=== PATIENT | female | born 2000 | race African-American/Black ===

== ENCOUNTER 2023-11-21 12:38 | Emergency (ER) | payer OTHER ==
[~2023-11-21] VITALS: Ht 160 cm; Wt 57.3 kg
[2023-11-21] MEDS ORDERED: ONDANSETRON 4MG 2ML VIAL IV ONE (13:00)
[2023-11-21] MEDS ORDERED: MORPHINE 4 MG/ML 1ML VIAL IV ONE (13:00)
[2023-11-21] MEDS ORDERED: NS 1,000 ML IV ONE (13:00)
[2023-11-21 13:29] LABS: BASO % 0.3 % (0.0-1.0); EOS % 0.2 % (0.0-3.0); HEMATOCRIT 38.2 % (36.0-47.0); HEMOGLOBIN 12.5 g/dl (12.0-15.5); LYMPH # 0.9 10^3/uL (1.5-5.0); LYMPH % 9.6 % (24.0-44.0); MEAN CORPUSCULAR HEMOGLOBIN 28.3 pg (27.0-33.0); MEAN CORPUSCULAR HGB CONC 32.7 g/dl (32.0-36.5); MEAN CORPUSCULAR VOLUME 86.4 fl (80.0-96.0); MONO # 0.5 10^3/uL (0.0-0.8); MONO % 5.1 % (2.0-8.0); NEUTROPHILS # 7.9 10^3/uL (1.5-8.5); NEUTROPHILS % 84.4 % (36.0-66.0); PLATELET COUNT, AUTOMATED 260 10^3/uL (150-450); RED BLOOD COUNT 4.42 10^6/uL (4.00-5.40); WHITE BLOOD COUNT 9.4 10^3/uL (4.0-10.0)
[2023-11-21 13:50] LABS: LIPASE 37 U/L (12-53)
[2023-11-21 13:53] LABS: ALBUMIN 4.2 G/DL (3.2-5.2); ALKALINE PHOSPHATASE 58 U/L (46-116); ALT/SGPT 11 U/L (7.0-40); AST/SGOT 13 U/L (<34); BILIRUBIN,DIRECT 0.2 MG/DL (<0.4); BILIRUBIN,TOTAL 0.5 MG/DL (0.3-1.2); BLOOD UREA NITROGEN 14 MG/DL (9-23); CALCIUM LEVEL 9.4 MG/DL (8.5-10.1); CARBON DIOXIDE LEVEL 25 MMOL/L (20-31); CHLORIDE LEVEL 107 MMOL/L (98-107); CREATININE FOR GFR 0.78 MG/DL (0.55-1.30); GLOMERULAR FILTRATION RATE > 60.0 (>60); GLUCOSE, FASTING 93 MG/DL (60-100); POTASSIUM SERUM 3.7 MMOL/L (3.5-5.1); SODIUM LEVEL 139 MMOL/L (136-145); TOTAL PROTEIN 7.8 G/DL (5.7-8.2)
[2023-11-21] MEDS ORDERED: ISOVUE-370 76% 100ML VIAL As Ordered ONE (13:57)
[2023-11-21 14:58] LABS: CHLAMYDIA DNA AMPLIFICATION NEGATIVE (NEGATIVE); GC DNA AMPLIFICATION NEGATIVE (NEGATIVE)
[2023-11-21 17:00] VITALS: TEMP 98.2
[2023-11-21 17:30] VITALS: BP 95/52; O2SAT 99
[2023-11-21] MEDS ORDERED: CIPROFLOXACIN 500MG TABLET PO ONE (17:30)
[2023-11-21] MEDS ORDERED: metroNIDAZOLE (FLAGYL) 500MG TABLET PO ONE (17:30)
[2023-11-21] MEDS ORDERED: CIPR-249 PO (17:38)
[2023-11-21] MEDS ORDERED: METR-265 PO (17:38)
== END 2023-11-21 17:51 | disposition home or self-care (01) ==
LOC: EDBD 12:38 → M ED 12:38
DX: N76.0 Acute vaginitis (principal); K51.019 Ulcerative (chronic) pancolitis with unspecified complications; F32.A Depression, unspecified; Z79.2 Long term (current) use of antibiotics; Z79.899 Other long term (current) drug therapy
CPT/HCPCS: 74177; 76856; 80048; 80076; 81001; 83690; 84702; 85025; 87210; 87661; 87810; 87850; 93041; 93976; 96361; 96374; 96375; 99285; J2405; Q9967

== ENCOUNTER 2024-06-28 12:29 | Emergency (ER) | payer OTHER ==
[~2024-06-28] VITALS: Ht 160 cm; Wt 55.8 kg
[~2024-06-28 12:29] MED LIST: CIPR-249 PO; METR-265 PO
[2024-06-28] MEDS ORDERED: UNIS25TA5 PO (12:44)
[2024-06-28] MEDS ORDERED: SERT25TA85 PO (12:44)
[2024-06-28 13:27] LABS: BASO % 0.6 % (0.0-1.0); EOS % 0.6 % (0.0-3.0); HEMATOCRIT 33.7 % (36.0-47.0); HEMOGLOBIN 11.5 g/dl (12.0-15.5); LYMPH # 1.4 10^3/uL (1.5-5.0); LYMPH % 27.2 % (24.0-44.0); MEAN CORPUSCULAR HEMOGLOBIN 29.7 pg (27.0-33.0); MEAN CORPUSCULAR HGB CONC 34.1 g/dl (32.0-36.5); MEAN CORPUSCULAR VOLUME 87.1 fl (80.0-96.0); MONO # 0.3 10^3/uL (0.0-0.8); NEUTROPHILS # 3.2 10^3/uL (1.5-8.5); NEUTROPHILS % 65.4 % (36.0-66.0); PLATELET COUNT, AUTOMATED 216 10^3/uL (150-450); RED BLOOD COUNT 3.87 10^6/uL (4.00-5.40)
[2024-06-28 13:48] LABS: LIPASE 53 U/L (12-53)
[2024-06-28 13:49] LABS: HCG, SERUM QUALITATIVE POSITIVE (NEGATIVE)
[2024-06-28 13:50] LABS: ALKALINE PHOSPHATASE 50 U/L (46-116); ALT/SGPT 39 U/L (7.0-40); AST/SGOT 27 U/L (<34); BILIRUBIN,DIRECT 0.3 MG/DL (<0.4); BILIRUBIN,TOTAL 0.7 MG/DL (0.3-1.2); BLOOD UREA NITROGEN 12 MG/DL (9-23); CALCIUM LEVEL 9.2 MG/DL (8.5-10.1); CARBON DIOXIDE LEVEL 23 MMOL/L (20-31); CHLORIDE LEVEL 105 MMOL/L (98-107); CREATININE FOR GFR 0.65 MG/DL (0.55-1.30); GLOMERULAR FILTRATION RATE > 60.0 (>60); GLUCOSE, FASTING 84 MG/DL (60-100); POTASSIUM SERUM 3.5 MMOL/L (3.5-5.1); SODIUM LEVEL 133 MMOL/L (136-145); TOTAL PROTEIN 7.6 G/DL (5.7-8.2)
[2024-06-28] MEDS: NS 1,000 ML IV ONE (17:24)
[2024-06-28] MEDS: ONDANSETRON 4MG 2ML VIAL IV ONE (17:24)
[2024-06-28 18:00] LABS: Trichomonas vaginalis (AMP) NOT DETECTED (NEGATIVE)
[2024-06-28 18:23] LABS: GC DNA AMPLIFICATION NEGATIVE (NEGATIVE)
[2024-06-28] MEDS ORDERED: ONDA-282 PO (18:41)
[2024-06-28 18:53] VITALS: BP 109/57; TEMP 97.7; O2SAT 100
== END 2024-06-28 18:56 | disposition home or self-care (01) ==
LOC: M ED 12:29
DX: O21.1 Hyperemesis gravidarum with metabolic disturbance (principal); F32.A Depression, unspecified; Z3A.01 Less than 8 weeks gestation of pregnancy; Z79.899 Other long term (current) drug therapy; Z79.83 Long term (current) use of bisphosphonates
CPT/HCPCS: 76801; 80048; 80076; 81001; 83690; 84702; 84703; 85025; 86850; 86900; 86901; 87661; 87810; 87850; 96361; 96374; 99284; J2405

== ENCOUNTER 2024-11-22 13:32 | Outpatient (CLI) | payer OTHER ==
[~2024-11-22] VITALS: Ht 162.6 cm; Wt 69.0 kg
[~2024-11-22 13:32] MED LIST changes: +ALBUTEROL SULFATE 2.5MG/0.5ML INH NEB SOLN INH PRN; +EPINEPHrine INJ 1 MG/ML 1ML AMP IM PRN; +ONDA-282 PO; +SERT25TA85 PO; +UNIS25TA5 PO; +diphenhydrAMINE 50MG/ML VIAL IV PRN; +methylPREDNISolone 125MG 2ML VIAL IV PRN
[2024-11-22 13:53] VITALS: BP 118/73; O2SAT 100
[2024-11-22] MEDS: IRON SUCROSE 300 MG in NS 250 ML IV ONE (14:34)
[2024-11-22] MEDS ORDERED: MULTTAB20 PO (14:37)
[2024-11-22 16:11] VITALS: BP 115/63; O2SAT 99
[2024-11-22 16:30] VITALS: BP 113/62; O2SAT 99
== END 2024-11-22 16:30 | disposition home or self-care (01) ==
LOC: M INFU 13:32
PROVIDERS: ATTEND Obstetrics & Gynecology
DX: O99.019 Anemia complicating pregnancy, unspecified trimester (principal)
CPT/HCPCS: 96365; 96366; J1756

== ENCOUNTER 2024-11-28 15:00 | Outpatient (CLI) | payer OTHER ==
[~2024-11-28] VITALS: Ht 162.6 cm; Wt 69.0 kg
[~2024-11-28 15:00] MED LIST changes: +MULTTAB20 PO
[2024-11-28 15:09] VITALS: BP 117/57; O2SAT 100
[2024-11-28] MEDS: IRON SUCROSE 300 MG in NS 250 ML OVER 90 MIN. IV ONE (15:18)
[2024-11-28 16:58] VITALS: BP 108/63; O2SAT 99
== END 2024-11-28 16:58 | disposition home or self-care (01) ==
LOC: M INFU 15:00
PROVIDERS: ATTEND Obstetrics & Gynecology
DX: O99.019 Anemia complicating pregnancy, unspecified trimester (principal); Z3A.00 Weeks of gestation of pregnancy not specified
CPT/HCPCS: 96365; 96366; J1756

== ENCOUNTER 2025-02-08 00:40 | Outpatient (CLI) | payer OTHER ==
[~2025-02-08] VITALS: Ht 160 cm; Wt 78.1 kg
[~2025-02-08 00:40] MED LIST changes: -ALBUTEROL SULFATE 2.5MG/0.5ML INH NEB SOLN INH PRN; -EPINEPHrine INJ 1 MG/ML 1ML AMP IM PRN; -diphenhydrAMINE 50MG/ML VIAL IV PRN; -methylPREDNISolone 125MG 2ML VIAL IV PRN
[2025-02-08 01:32] VITALS: BP 135/81
== END 2025-02-08 01:43 | disposition home or self-care (01) ==
LOC: M LDO 00:40
PROVIDERS: ATTEND Advanced Practice Midwife
DX: O26.893 Other specified pregnancy related conditions, third trimester (principal); N89.8 Other specified noninflammatory disorders of vagina; Z3A.39 39 weeks gestation of pregnancy
CPT/HCPCS: 59025; 76815; G0463

== ENCOUNTER 2025-08-02 07:10 | Emergency (ER) | payer OTHER ==
[~2025-08-02] VITALS: Ht 162.6 cm; Wt 65.9 kg
[2025-08-02] MEDS ORDERED: CETI10CH PO (07:58)
[2025-08-02 08:55] VITALS: BP 100/68; TEMP 98.5; O2SAT 99
== END 2025-08-02 09:08 | disposition home or self-care (01) ==
LOC: M ED 07:10
DX: U07.1 COVID-19 (principal); J44.9 Chronic obstructive pulmonary disease, unspecified; F32.A Depression, unspecified; Z79.899 Other long term (current) drug therapy

== ENCOUNTER 2025-08-29 08:52 | Emergency (ER) | payer OTHER ==
[~2025-08-29] VITALS: Ht 162.6 cm; Wt 64.4 kg
[~2025-08-29 08:52] MED LIST changes: +CETI10CH PO
[2025-08-29] MEDS ORDERED: IBUP200C25 PO (10:25)
[2025-08-29] MEDS: KETOROLAC 30 MG/ML 1 ML VIAL IV ONE (11:19)
[2025-08-29] MEDS: diphenhydrAMINE 50 MG/ML VIAL IV STA (11:19)
[2025-08-29] MEDS: NS (Normal Saline) 0.9% 1,000 ML IV ONE (11:20)
[2025-08-29] MEDS ORDERED: ONDA-282 PO (12:28)
[2025-08-29 12:34] VITALS: BP 102/55; TEMP 98.8; O2SAT 99
== END 2025-08-29 12:46 | disposition home or self-care (01) ==
LOC: M ED 08:52
DX: J06.9 Acute upper respiratory infection, unspecified (principal); B34.0 Adenovirus infection, unspecified; G43.909 Migraine, unspecified, not intractable, without status migrainosus; F32.A Depression, unspecified; Z79.1 Long term (current) use of non-steroidal anti-inflammatories (NSAID); Z79.899 Other long term (current) drug therapy
CPT/HCPCS: 87486; 87581; 87633; 87798; 96361; 96374; 99284; J1200; J1885; J2765